=== PATIENT | female | born 1965 | race Hispanic/Latino ===

== ENCOUNTER 2018-10-18 09:58 | Inpatient (IN) | payer OTHER ==
[2018-10-18 10:04] VITALS: BMI 24.6
--- NOTE | 2018-10-18 10:26 | ED PDOC ---
HPI: Back Time Seen by Provider: 10/18/18 10:09 Chief Complaint (Provider): Neck pain History Per: Patient History/Exam Limitations: no limitations Onset/Duration Of Symptoms: Persistent Current Symptoms Are (Timing): Still Present Quality Of Discomfort: "Pain", Other Severity: Moderate Previous Symptoms: Neck Pain Additional History Per: Patient Additional Complaint(s): 52yo female with history of Baretts esophagus, chronic neck pain, cervical disk disease, comes to ER reporting worsening neck pain over the past week. She reports the pain now radiates to bilateral arms including elbows. She denies any weakness, numbness, new trauma or injury. No chest pain or shortness of breath. No additional complaints. PMD: Dr. Kaufman Past Medical History Reviewed: Historical Data, Nursing Documentation, Vital Signs Vital Signs: Last Vital Signs Temp 97 F L 10/18/18 10:02 Pulse 81 10/18/18 10:02 Resp 18 10/18/18 10:02 BP 168/93 H 10/18/18 10:02 Pulse Ox 99 10/18/18 10:02 - Medical History PMH: GERD (barett's esophagus), Chronic Pain (neck) - Surgical History Surgical History: No Surg Hx - Family History Family History: States: No Known Family Hx - Allergies Allergies/Adverse Reactions: Allergies Allergy/AdvReac Type Severity Reaction Status Date / Time codeine Allergy RASH Verified 10/18/18 10:28 nitrofurantoin Allergy RASH Verified 10/18/18 10:28 [From Macrobid] phenazopyridine Allergy RASH Verified 10/18/18 10:28 [From Pyridium] sulfamethoxazole Allergy RASH Verified 10/18/18 10:28 [From Bactrim] sulfur dioxide Allergy RASH Verified 10/18/18 10:28 trimethoprim [From Bactrim] Allergy RASH Verified 10/18/18 10:28 Review of Systems ROS Statement: Except As Marked, All Systems Reviewed And Found Negative Cardiovascular: Negative for: Chest Pain Respiratory: Negative for: Shortness of Breath Musculoskeletal: Positive for: Neck Pain, Arm Pain Neurological: Negative for: Weakness, Numbness Physical Exam - Reviewed Nursing Documentation Reviewed: Yes Vital Signs Reviewed: Yes - Physical Exam Appears: Positive for: Non-toxic, Uncomfortable Head Exam: Positive for: ATRAUMATIC, NORMAL INSPECTION, NORMOCEPHALIC Skin: Positive for: Normal Color Eye Exam: Positive for: Normal appearance, EOMI, PERRL Neck: Positive for: Supple. Negative for: Normal (+ bilateral paracervical tenderness. no midline tenderness) Cardiovascular/Chest: Positive for: Regular Rate, Rhythm. Negative for: Tachycardia Respiratory: Positive for: Normal Breath Sounds. Negative for: Respiratory Distress Gastrointestinal/Abdominal: Positive for: Normal Exam, Soft Back: Positive for: Normal Inspection Extremity: Positive for: Normal ROM (FROM bilateral upper extremities), Capillary Refill (< 2 seconds). Negative for: Tenderness, Deformity, Swelling Neurological/Psych: Positive for: Awake, Alert, Oriented (x 3). Negative for: Motor/Sensory Deficits - ECG O2 Sat by Pulse Oximetry: 99 (RA) Pulse Ox Interpretation: Normal Medical Decision Making Medical Decision Making: Chronic neck pain exacerbation [address] Kulkarni, patient to be admitted under his service due to intractable neck pain CXR ordered, basic labs ordered Scribe Attestation: Documented by Zoila Becerra acting as a scribe for Edwardo Chacko MD Provider Scribe Attestation: All medical record entries made by the Scribe were at my direction and personally dictated by me. I have reviewed the chart and agree that the record accurately reflects my personal performance of the history, physical exam, medical decision making, and the department course for this patient. I have also personally directed, reviewed, and agree with the discharge instructions and disposition. Disposition - Clinical Impression Clinical Impression: Neck pain, Cervical disc disease - Patient ED Disposition Is Patient to be Admitted: Yes - Disposition Disposition Time: 10:30 Condition: FAIR - Pt Status Changed To: Hospital Disposition Of: Inpatient - Admit Certification Admit to Inpatient:: After my assessment, the patient will require hospitalization for at least two midnights. This is because of the severity of symptoms shown, intensity of services needed, and/or the medical risk in this patient being treated as an outpatient. - POA Present On Arrival: None
[2018-10-18 11:20] LABS: PROTHROMBIN TIME 11.5 Seconds (9.8-13.1)
[2018-10-18 11:29] LABS: BASO % 0.7 % (0.0-2.0); EOS % 0.5 % (0.0-4.0); LYMPH # 0.9 K/uL (1.0-4.3); MEAN CELL VOLUME 91.5 fl (81.0-99.0); MEAN CORPUSCULAR HEMOGLOBIN 30.3 pg (27.0-31.0); MEAN CORPUSCULAR HGB CONC 33.1 g/dL (33.0-37.0); MEAN PLATELET VOLUME 9.9 fl (7.2-11.7); MONO # 0.3 K/uL (0.0-0.8); MONO % 6.7 % (0.0-10.0); NEUT % 71.1 % (50.0-75.0); NRBC % 0.1 % (0.0-0.0); RBC 4.62 Mil/uL (3.80-5.20); RED CELL DISTRIBUTION WIDTH 13.4 % (11.5-14.5); WHITE BLOOD COUNT 4.3 K/uL (4.8-10.8)
[2018-10-18 11:37] LABS: ALB/GLOB RATIO 1.5 (1.0-2.1); ALBUMIN 4.7 g/dL (3.5-5.0); ALT/SGPT 28 U/L (9-52); AST/SGOT 30 U/L (14-36); BLOOD UREA NITROGEN 17 mg/dl (7-17); CALCIUM 9.8 mg/dL (8.4-10.2); GFR NON-AFRICAN AMERICAN > 60
--- NOTE | 2018-10-18 12:23 | RAD ---
Date of service: 10/18/2018 HISTORY: Preoperative examination COMPARISON: No prior. TECHNIQUE: Chest PA and lateral FINDINGS: LINES AND TUBES: None. LUNG AND PLEURA: The lungs are well inflated and clear. No pleural effusion or pneumothorax. HEART AND MEDIASTINUM: The heart is not enlarged. No aortic atherosclerotic calcifications present. The hilar and mediastinal contours are within normal limits. SKELETAL STRUCTURES: The bony structures are within normal limits for the patient's age. VISUALIZED UPPER ABDOMEN: Normal. OTHER FINDINGS: None. IMPRESSION: No active pulmonary disease.
--- NOTE | 2018-10-18 15:33 | CARD ---
APPROVED REPORT Date of service: 10/18/2018 EKG Measurement Heart [id number] <Conclusion> Normal sinus rhythm Normal Electrocardiogram
--- NOTE | 2018-10-19 01:06 | CP.PCM.HP ---
History of Present Illness - History of Present Illness History of Present Illness: This is a 52 y/o female with hx of chronic posterior nec pain and radiculopathy presenting as pins and needles sensation and numbness of both hands. She was given gabapentin and seem to have given partial relief. However over the past two weeks her symptoms have worsen with associated decreased motor strenght of both upper extremities hence sought ER eval. Conservative measures have been tried but to no avail. Her sx increased in intensity hence sought ER eval. Medical Hx barrets esophagus On gaviscon only could not tolerate PPI's Present on Admission - Present on Admission Any Indicators Present on Admission: No History of DVT/PE: No History of Uncontrolled Diabetes: No Urinary Catheter: No Decubitus Ulcer Present: No Past Patient History - Past Medical History & Family History Past Medical History?: Yes - Past Social History Smoking Status: Never Smoked - CARDIAC Hx Cardiac Disorders: No - PULMONARY Hx Respiratory Disorders: No - NEUROLOGICAL Hx Neurological Disorder: Yes Hx Migraine: Yes - HEENT Hx HEENT Problems: No - RENAL Hx Chronic Kidney Disease: No - ENDOCRINE/METABOLIC Hx Endocrine Disorders: No - HEMATOLOGICAL/ONCOLOGICAL Hx Blood Disorders: No - INTEGUMENTARY Hx Dermatological Problems: No - MUSCULOSKELETAL/RHEUMATOLOGICAL Hx Musculoskeletal Disorders: Yes Hx Falls: No Other/Comment: intractable neck pain - GASTROINTESTINAL Hx Gastrointestinal Disorders: No - GENITOURINARY/GYNECOLOGICAL Hx Genitourinary Disorders: No - PSYCHIATRIC Hx Psychophysiologic Disorder: No Hx Substance Use: No - SURGICAL HISTORY Hx Surgeries: Yes Other/Comment: lower back surgery L4,L5,S1 infusion with 2 rods - ANESTHESIA Hx Anesthesia: Yes (as per pt, migraines) Hx Anesthesia Reactions: Yes Hx Malignant Hyperthermia: No Meds Allergies/Adverse Reactions: Allergies Allergy/AdvReac Type Severity Reaction Status Date / Time codeine Allergy RASH Verified 10/18/18 10:28 nitrofurantoin Allergy RASH Verified 10/18/18 10:28 [From Macrobid] phenazopyridine Allergy RASH Verified 10/18/18 10:28 [From Pyridium] sulfamethoxazole Allergy RASH Verified 10/18/18 10:28 [From Bactrim] sulfur dioxide Allergy RASH Verified 10/18/18 10:28 trimethoprim [From Bactrim] Allergy RASH Verified 10/18/18 10:28 dexlansoprazole AdvReac NAUSEA Verified 10/18/18 10:48 [From Dexilant] famotidine AdvReac NAUSEA Verified 10/18/18 10:48 Physical Exam - Head Exam Head Exam: NORMAL INSPECTION - Eye Exam Eye Exam: Normal appearance - Respiratory Exam Respiratory Exam: Clear to Auscultation Bilateral - Cardiovascular Exam Cardiovascular Exam: REGULAR RHYTHM - GI/Abdominal Exam GI & Abdominal Exam: Normal Bowel Sounds - Neurological Exam Neurological exam: CN II-XII Intact - Psychiatric Exam Psychiatric exam: Normal Mood Results - Vital Signs Recent Vital Signs: Last Vital Signs Temp 97.6 F 10/19/18 00:00 Pulse 72 10/19/18 00:00 Resp 18 10/19/18 00:00 BP 115/65 10/19/18 00:00 Pulse Ox 98 10/19/18 00:00 - Labs Result Diagrams: 10/18/18 10:02 10/18/18 10:02 Labs: Laboratory Results - last 24 hr 10/18/18 10/18/18 10/18/18 10:02 10:02 10:02 WBC 4.3 L RBC 4.62 Hgb 14.0 Hct 42.3 MCV 91.5 MCH 30.3 MCHC 33.1 RDW 13.4 Plt Count 176 MPV 9.9 Neut % (Auto) 71.1 Lymph % (Auto) 21.0 [place] % (Auto) 6.7 Eos % (Auto) 0.5 Baso % (Auto) 0.7 Neut # (Auto) 3.0 Lymph # (Auto) 0.9 L Sharp # (Auto) 0.3 Eos # (Auto) 0.0 Baso # (Auto) 0.0 PT 11.5 INR 1.0 Sodium 141 Potassium 4.2 Chloride 107 Carbon Dioxide 25 Anion Gap 13 BUN 17 Creatinine 0.9 Est GFR ( Amer) > 60 Est GFR (Non-Af Amer) > 60 Random Glucose 98 Calcium 9.8 Total Bilirubin 0.5 AST 30 ALT 28 Alkaline Phosphatase 88 Total Protein 7.8 Albumin 4.7 Globulin 3.1 Albumin/Globulin Ratio 1.5 Assessment & Plan (1) Herniated disc, cervical Status: Acute (2) Cervical disc disease Status: Acute (3) Gannon's esophageal ulceration Status: Acute (4) Barretts esophagus Status: Acute - Assessment and Plan (Free Text) Plan: Admit patient Dr Kaufman aware pain meds labs reviewed medically stable for surgery
[2018-10-19] MEDS ORDERED: Dextrose 5%/Lactated Ringer's 1,000 ML IV SCH (06:00)
[2018-10-19] MEDS ORDERED: Thrombin Topical 5,000 Int Units Spray Kit ONE (07:05)
[2018-10-19] MEDS ORDERED: Propofol 10 mg/ml Inj (20 ML) ONE (07:15)
[2018-10-19] MEDS ORDERED: Succinylcholine Chloride 20 mg/ml Syr (5 ml) IV ONE (07:15)
[2018-10-19] MEDS ORDERED: Rocuronium 10 mg/ml (5 ml) ONE (07:15)
[2018-10-19] MEDS ORDERED: Lidocaine 4% (Laryng-O-Jet) Kit MM ONE ×2 (07:15→07:16)
--- NOTE | 2018-10-19 07:15 | CP.PCM.CON ---
History of Present Illness - History of Present Illness History of Present Illness: Neurosurgery consult: Dr. Kaufman Patient is a 52 y/o female who presents with severe neck pain. She has had pain for many years which had progressively worsened over the last 2 weeks. She has tried and failed conservative management with physical therapy and oral medications. The pain has severely limited her daily activities such as lifting objects and sudden movements prompting her for emergent evaluation. The pain radiates from the neck to BUE, along with numbness and tingling. The pain is sharp and intermittent. She denies CP/SOB/N/V/D/fever/melena/dysuria. Review of Systems - Review of Systems All systems: reviewed and no additional remarkable complaints except Review of Systems: as per HPI Past Patient History - Past Medical History & Family History Past Medical History?: Yes Past Family History: Reviewed and not pertinent - Past Social History Smoking Status: Never Smoked - CARDIAC Hx Cardiac Disorders: No - PULMONARY Hx Respiratory Disorders: No - NEUROLOGICAL Hx Neurological Disorder: Yes Hx Migraine: Yes - HEENT Hx HEENT Problems: No - RENAL Hx Chronic Kidney Disease: No - ENDOCRINE/METABOLIC Hx Endocrine Disorders: No - HEMATOLOGICAL/ONCOLOGICAL Hx Blood Disorders: No - INTEGUMENTARY Hx Dermatological Problems: No - MUSCULOSKELETAL/RHEUMATOLOGICAL Hx Musculoskeletal Disorders: Yes Hx Falls: No Other/Comment: intractable neck pain - GASTROINTESTINAL Hx Gastrointestinal Disorders: No - GENITOURINARY/GYNECOLOGICAL Hx Genitourinary Disorders: No - PSYCHIATRIC Hx Psychophysiologic Disorder: No Hx Substance Use: No - SURGICAL HISTORY Hx Surgeries: Yes Other/Comment: lower back surgery L4,L5,S1 infusion with 2 rods - ANESTHESIA Hx Anesthesia: Yes (as per pt, migraines) Hx Anesthesia Reactions: Yes Hx Malignant Hyperthermia: No Meds Allergies/Adverse Reactions: Allergies Allergy/AdvReac Type Severity Reaction Status Date / Time codeine Allergy RASH Verified 10/18/18 10:28 nitrofurantoin Allergy RASH Verified 10/18/18 10:28 [From Macrobid] phenazopyridine Allergy RASH Verified 10/18/18 10:28 [From Pyridium] sulfamethoxazole Allergy RASH Verified 10/18/18 10:28 [From Bactrim] sulfur dioxide Allergy RASH Verified 10/18/18 10:28 trimethoprim [From Bactrim] Allergy RASH Verified 10/18/18 10:28 dexlansoprazole AdvReac NAUSEA Verified 10/18/18 10:48 [From Dexilant] famotidine AdvReac NAUSEA Verified 10/18/18 10:48 - Medications Medications: Current Medications Gabapentin (Neurontin) 200 mg PO [facility] Last Admin: 10/18/18 21:33 Dose: 200 mg Dextrose/Lactated Ringer's (Dextrose 5%/Lactated Ringer's) 1,000 mls @ 80 mls/hr IV .[id number] [facility] Stop: 10/19/18 12:20 Last Admin: 10/19/18 05:46 Dose: 80 mls/hr Physical Exam - Constitutional Appears: Well, No Acute Distress - Head Exam Head Exam: ATRAUMATIC, NORMOCEPHALIC - Eye Exam Eye Exam: EOMI, Normal appearance - ENT Exam ENT Exam: Mucous Membranes Moist - Neck Exam Additional comments: Midline tenderness b/l paraspinal tenderness motor and sensation intact AXN/MN/UN/RN neg clonus - Respiratory Exam Respiratory Exam: NORMAL BREATHING PATTERN - Neurological Exam Neurological exam: Alert, CN II-XII Intact, Oriented x3 - Psychiatric Exam Psychiatric exam: Normal Affect, Normal Mood - Skin Skin Exam: Normal Color, Warm Results - Vital Signs Recent Vital Signs: Last Vital Signs Temp 97.6 F 10/19/18 00:00 Pulse 72 10/19/18 00:00 Resp 18 10/19/18 00:00 BP 115/65 10/19/18 00:00 Pulse Ox 98 10/19/18 00:00 - Labs Result Diagrams: 10/18/18 10:02 10/18/18 10:02 Labs: Laboratory Results - last 24 hr 10/18/18 10/18/18 10/18/18 10:02 10:02 10:02 WBC 4.3 L RBC 4.62 Hgb 14.0 Hct 42.3 MCV 91.5 MCH 30.3 MCHC 33.1 RDW 13.4 Plt Count 176 MPV 9.9 Neut % (Auto) 71.1 Lymph % (Auto) 21.0 [place] % (Auto) 6.7 Eos % (Auto) 0.5 Baso % (Auto) 0.7 Neut # (Auto) 3.0 Lymph # (Auto) 0.9 L [place] # (Auto) 0.3 Eos # (Auto) 0.0 Baso # (Auto) 0.0 PT 11.5 INR 1.0 Sodium 141 Potassium 4.2 Chloride 107 Carbon Dioxide 25 Anion Gap 13 BUN 17 Creatinine 0.9 Est GFR ( Amer) > 60 Est GFR (Non-Af Amer) > 60 Random Glucose 98 Calcium 9.8 Total Bilirubin 0.5 AST 30 ALT 28 Alkaline Phosphatase 88 Total Protein 7.8 Albumin 4.7 Globulin 3.1 Albumin/Globulin Ratio 1.5 Assessment & Plan (1) Cervical spondylosis Assessment and Plan: -Preoperatively, Dr. Kaufman reviewed the patient's cervical MRI and discussed with the patient to perform C3-4 and C4-5 anterior cervical discectomy and fusion,possible other levels -Risks/benefits/alternatives to procedure were explained in detail with patient. The patient expresses understanding and agrees to proceed with above procedure. -NPO -D/w Dr. Kaufman who agrees with above Status: Acute - Date & Time Date: 10/19/18 Time: 07:14
[2018-10-19] MEDS ORDERED: Lactated Ringer's 1,000 ML IV ONE ×3 (07:40→09:03)
[2018-10-19] MEDS ORDERED: Midazolam 2 MG/2 ML VIAL ONE (07:41)
[2018-10-19] MEDS ORDERED: Absorbable Gelatin Sponge Size 100 ONE (08:05)
[2018-10-19] MEDS ORDERED: Dexamethasone 4 mg/1 ml ONE (08:06)
[2018-10-19] MEDS ORDERED: Lidocaine 2% MPF (5 ml) Inj ONE (08:39)
[2018-10-19] MEDS ORDERED: Neostigmine 1:1000 (1 mg/ml) Inj ONE (08:40)
[2018-10-19] MEDS ORDERED: HEMOSTATIC MATRIX 10 ML DIS.NEEDLE TOP ONE (08:45)
[2018-10-19] MEDS: HYDROmorphone 0.5 mg/0.5 ml ISec IVP PRN ×4 (09:19→09:38)
--- NOTE | 2018-10-19 11:35 | PCM.SURG1 ---
Surgeon's Initial Post Op Note - Surgeon's Notes Surgeon: David Kaufman MD Edger Machine Operator: Zafar Calderon PA-C Type of Anesthesia: General Endo Anesthesia Administered By: Murali Oliva MD Pre-Operative Diagnosis: Cervical Spondylosis Operative Findings: See complete operative report Post-Operative Diagnosis: C3-4 and C4-5 cervical spondylosis Operation Performed: C3-4 and C4-5 anterior cervical discectomy and fusion Specimen/Specimens Removed: none Estimated Blood Loss: EBL {In ML}: 50 Blood Products Given: N/A Drains Used: Danielito Aguilar (R neck) Post-Op Condition: Good Date of Surgery/Procedure: 10/19/18 Time of Surgery/Procedure: 07:40
--- NOTE | 2018-10-19 13:48 | RAD ---
Date of service: 10/19/2018 PROCEDURE: Fluoroscopic assistance in excess of 1 hour. HISTORY: ACDF COMPARISON: None TECHNIQUE: Total fluoroscopic time (continuous mode) utilized during the procedure 12.3 seconds. . FINDINGS: Total exam DLP: 0.69 (mGy). IMPRESSION: Submitted images from the current procedure: 3.0.
[2018-10-19] MEDS: Dexamethasone 4 mg/1 ml IVP SCH (16:16)
[2018-10-19] MEDS ORDERED: Dexamethasone 4 MG in Sodium Chloride 0.9% 50 ML IVPB SCH (17:00)
[2018-10-19] MEDS: ceFAZolin 1 GM in Sodium Chloride 0.9% 100 ML IVPB SCH (18:40)
[2018-10-19] MEDS ORDERED: Docusate-Senna 50 mg-8.6 mg Tab PO SCH (22:00)
--- NOTE | 2018-10-19 23:25 | CP.PCM.PN ---
Subjective - Date & Time of Evaluation Date of Evaluation: 10/19/18 Time of Evaluation: 10:55 - Subjective Subjective: Pt seen and assessed in recovery room s/p cervical discectomy C3-C4, C4-C5. Currently drowsy but arousable, will be transferred to telemetry for post-op monitoring. Subjective Review of Systems: reviewed and no additional remarkable complaints except drowsiness s/p cervical procedure. Objective Vital Signs Stable Appears: Non-toxic, No Acute Distress. Head Exam: NORMAL INSPECTION, normocephalic. Eye Exam: Reddened right eye, PERRLA, EOMI. Respiratory Exam: Respirations easy, non-labored, breath sounds clear bilaterally. Cardiovascular Exam: +S1, +S2; RRR. GI & Abdominal Exam: Soft, non-tender, non-distended. Neurological Exam: Drowsy but arousable, responds appropriately. Psychiatric exam: Normal Affect, Normal Mood Skin Exam: Normal Color, Warm, Dry. Assessment/Impression/Plan: 1.) Neck Pain/Cervical disc disease -C3-C4, C4-C5 discectomy done by Dr. Kaufman (neurosurgery). -Right neck TAVO drain noted with serosanguineous drainage- monitor output. -Telemetry monitoring s/p surgery. -Pain/comfort measures. -Continue current tx. Objective - Vital Signs/Intake and Output Vital Signs (last 24 hours): Temp Pulse Resp BP Pulse Ox 97.4 F L 68 17 130/84 99 10/19/18 19:40 10/19/18 19:40 10/19/18 19:40 10/19/18 19:40 10/19/18 19:40 Intake and Output: 10/19/18 10/20/18 18:59 06:59 Intake Total 970 Output Total 5 Balance 965 - Medications Medications: Current Medications Acetaminophen (Tylenol 325mg Tab) 650 mg PO Q4 PRN PRN Reason: Fever 101 degrees fahrenheit Cyclobenzaprine HCl (Flexeril) 10 mg PO Q8 PRN PRN Reason: Muscle spasm Dexamethasone (Decadron Inj) 4 mg IVP Q8 [facility] Last Admin: 10/19/18 16:16 Dose: 4 mg Gabapentin (Neurontin) 200 mg PO HS [facility] Last Admin: 10/18/18 21:33 Dose: 200 mg Hydromorphone HCl (Dilaudid) 1 mg IVP Q4 PRN PRN Reason: Pain, severe (8-10) Last Admin: 10/19/18 16:16 Dose: 1 mg Cefazolin Sodium 1 gm/ Sodium (Chloride) 100 mls @ 100 mls/hr IVPB Q8 [facility]; Protocol Stop: 10/21/18 17:01 Last Admin: 10/19/18 18:40 Dose: 100 mls/hr Lactated Ringer's (Lactated Ringer's) 1,000 mls @ 100 mls/hr IV .Q10H [facility] Ondansetron HCl (Zofran Inj) 4 mg IVP ONCE PRN PRN Reason: Nausea/Vomiting Last Admin: 10/19/18 11:30 Dose: 4 mg Ondansetron HCl (Zofran Inj) 4 mg IVP Q6 PRN PRN Reason: Nausea/Vomiting Last Admin: 10/19/18 16:19 Dose: 4 mg Senna/Docusate Sodium (Senokot S 50 Mg-8.6 Mg) 2 tab PO HS [facility] Tramadol HCl (Ultram) 50 mg PO Q4 PRN PRN Reason: Pain, Mild (1-3) Last Admin: 10/19/18 21:27 Dose: 50 mg Tramadol HCl (Ultram) 100 mg PO Q4 PRN PRN Reason: Pain, moderate (4-7) - Labs Labs: 10/18/18 10:02 10/18/18 10:02 PT 11.5 Seconds (9.8-13.1) 10/18/18 10:02 INR 1.0 10/18/18 10:02 Assessment and Plan (1) Cervical disc disease Status: Acute (2) Neck pain Status: Acute
[2018-10-20] MEDS: Dexamethasone 4 mg/1 ml IVP SCH ×2 (00:06→09:05)
[2018-10-20] MEDS: ceFAZolin 1 GM in Sodium Chloride 0.9% 100 ML IVPB SCH ×2 (00:07→09:08)
[2018-10-20 00:13] VITALS: O2SAT 100
[2018-10-20] MEDS: Lactated Ringer's 1,000 ML IV SCH ×2 (00:14→09:07)
--- NOTE | 2018-10-20 00:37 | OP ---
PROCEDURE DATE: 10/19/2018 PREOPERATIVE DIAGNOSIS: Herniated cervical disk at C3-4, C4-5. POSTOPERATIVE DIAGNOSIS: Herniated cervical disk at C3-4, C4-5. PROCEDURE: Partial vertebrectomy of C3, C4 and C5; discectomy of C3-4, C4-5; interbody fusion of C3-4, C4-5 using PEEK and bone; plating and instrumentation from C3-C5 using spinal element plate. Fluoroscopy has been used, microscope has been used. SURGEON: David Kaufman MD. EVENT COORDINATOR MARKETING AND SALES: Zafar Calderon. Zafar Calderon is the physician records assistant who helped me perform the surgery and stayed throughout the case from the beginning to the end. DESCRIPTION OF PROCEDURE: The patient was brought to the operating room, anesthetized with general endotracheal anesthesia, placed in a supine position. Head was placed on a donut. Care was taken to protect all the pressure points. Right side of the neck was thoroughly prepped and draped in the same sterile manner after marking the skin incisions for cervical vertebrectomy. After prepping and draping the area, skin has been incised. Bleeding skins have been controlled with bipolar commercial real estate sales manager. Using a Bovie commercial real estate sales manager, the platysma has been cut. Dissection has been carried out between trachea and esophagus medially and sternomastoid carried out laterally. Prevertebral fascia has been cauterized and cut. Identification of levels has been done with the help of fluoroscopy. Longus colli has been detached from attachment of vertebral bodies of C3, C4, and C5. Dyonics retractor has been applied. Rest of the operation carried out with microscopic illumination. PARTIAL VERTEBRECTOMY OF C3, C4 and C5 AND DISCECTOMY OF C3-4, C4-5: By using a high-speed drill, the vertebral bodies of C3-4 have been drilled. Drilling was continued posteriorly. Partial vertebrectomy including removal of half of the vertebral body, cartilages, and plates has been done. Herniated disk has been removed. Posterior longitudinal ligament has been opened. Dura has been decompressed from side to side. By using a high-speed drill, the vertebral bodies of C4-5 have been drilled. Partial vertebrectomy including removal of half of the vertebral body, cartilages and plates has been done. Diskectomy has been performed. Herniated disk material has been removed. Posterior longitudinal ligament has been opened. Dura has been decompressed from side to side. INTERBODY FUSION OF C3-4, C4-5 USING A PEEK AND BONE: Two pieces of PEEK implant have been brought in. They have been filled with demineralized bone. They were gently tapped into space creating a partial vertebrectomy of C3-4 and C4-5. Position had been confirmed to be good. PLATING AND INSTRUMENTATION C3-C5 USING SPINAL ELEMENTS PLATE: An spinal elements plate has been placed at vertebral bodies of C3, C4, C5. By using 12 mm screw, it has been secured under fluoroscopic guided control. After that, hemostasis was best achieved. Danielito drain was placed in the wound and brought out through a separate stab neck skin incision. Platysma closed with 3-0 Vicryl. Skin has been closed with intradermal 3 Vicryl stitches. The patient tolerated the procedure. After the procedure, mobilized to the recovery room in stabilized condition. David Kaufman MD
[2018-10-20 07:11] LABS: HEMOGLOBIN 13.8 g/dL (12.0-16.0); MEAN CELL VOLUME 91.7 fl (81.0-99.0); MEAN CORPUSCULAR HEMOGLOBIN 30.8 pg (27.0-31.0); MEAN CORPUSCULAR HGB CONC 33.6 g/dL (33.0-37.0); RBC 4.49 Mil/uL (3.80-5.20); RED CELL DISTRIBUTION WIDTH 13.2 % (11.5-14.5)
[2018-10-20 07:18] LABS: BLOOD UREA NITROGEN 14 mg/dl (7-17); CALCIUM 10.1 mg/dL (8.4-10.2); GFR NON-AFRICAN AMERICAN > 60
[2018-10-20 08:01] VITALS: RESP 20
[2018-10-20 11:58] VITALS: BP 134/84; PULSE 77; TEMP 98
--- NOTE | 2018-10-20 14:21 | CP.PCM.PN ---
Subjective - Date & Time of Evaluation Date of Evaluation: 10/20/18 Time of Evaluation: 14:17 - Subjective Subjective: f/u Dr. Kaufman Patient doing well. Says the pain in her elbow is gone and the tingling in her hands is occasional now and minimal. +vomiting yesterday, but denies n/v today. Denies CP/SOB/dizziness. Tolerating diet well, no issues swallowing. Objective - Vital Signs/Intake and Output Vital Signs (last 24 hours): Temp Pulse Resp BP Pulse Ox 98.0 F 77 20 134/84 100 10/20/18 11:57 10/20/18 11:57 10/20/18 11:57 10/20/18 11:57 10/20/18 11:57 - Medications Medications: Current Medications Acetaminophen (Tylenol 325mg Tab) 650 mg PO Q4 PRN PRN Reason: Fever 101 degrees fahrenheit Cyclobenzaprine HCl (Flexeril) 10 mg PO Q8 PRN PRN Reason: Muscle spasm Dexamethasone (Decadron Inj) 4 mg IVP Q8 [facility] Last Admin: 10/20/18 09:05 Dose: 4 mg Gabapentin (Neurontin) 200 mg PO HS [facility] Last Admin: 10/19/18 23:00 Dose: 200 mg Hydromorphone HCl (Dilaudid) 1 mg IVP Q4 PRN PRN Reason: Pain, severe (8-10) Last Admin: 10/19/18 16:16 Dose: 1 mg Cefazolin Sodium 1 gm/ Sodium (Chloride) 100 mls @ 100 mls/hr IVPB Q8 [facility]; Protocol Stop: 10/21/18 17:01 Last Admin: 10/20/18 09:08 Dose: 100 mls/hr Lactated Ringer's (Lactated Ringer's) 1,000 mls @ 100 mls/hr IV .Q10H [facility] Last Admin: 10/20/18 09:07 Dose: 100 mls/hr Ondansetron HCl (Zofran Inj) 4 mg IVP ONCE PRN PRN Reason: Nausea/Vomiting Last Admin: 10/19/18 11:30 Dose: 4 mg Ondansetron HCl (Zofran Inj) 4 mg IVP Q6 PRN PRN Reason: Nausea/Vomiting Last Admin: 10/20/18 00:19 Dose: 4 mg Senna/Docusate Sodium (Senokot S 50 Mg-8.6 Mg) 2 tab PO HS [facility] Last Admin: 10/19/18 23:00 Dose: 2 tab Tramadol HCl (Ultram) 50 mg PO Q4 PRN PRN Reason: Pain, Mild (1-3) Last Admin: 10/19/18 21:27 Dose: 50 mg Tramadol HCl (Ultram) 100 mg PO Q4 PRN PRN Reason: Pain, moderate (4-7) - Labs Labs: 10/20/18 06:10 10/20/18 06:10 PT 11.5 Seconds (9.8-13.1) 10/18/18 10:02 INR 1.0 10/18/18 10:02 - Neck Exam Additional comments: 2cc overnight in TAVO, <1 now, pulled. +ROM shoulder abd/fflex/elbow flex/ext/wrist flex/ext, finger abd/add sensation intact C5-T2 incision intact, dry Assessment and Plan (1) Cervical spondylosis Assessment & Plan: POD#1 s/p ACDF C3-C5 d/c home soft collar f/u 2 weeks, call for appt dressing change daily until dry d/w Dr. Kaufman, agrees with above Status: Acute
--- NOTE | 2018-10-21 14:54 | CP.PCM.DIS ---
Provider - Provider Date of Admission: 10/18/18 10:10 Attending physician: Davi Kulkarni MD Consults: 10/18/18 23:33 Neuro Surgery Consult Routine Comment: schd C3-C4 cerv disectomy w/fusion 10/19/18 Consulting Provider: David Kaufman Consulting Physician: David Kaufman Reason for Consult: for OR 10/19/18 10/19/18 11:22 Case Management Referral Routine Comment: Physician Instructions: Reason For Exam: Reason for Referral: Discharge Planning Time Spent in preparation of Discharge (in minutes): 30 Diagnosis - Discharge Diagnosis (1) Cervical spondylosis Status: Acute Hospital Course - Lab Results Lab Results: Most Recent Lab Values WBC 9.0 K/uL (4.8-10.8) D 10/20/18 06:10 RBC 4.49 Mil/uL (3.80-5.20) 10/20/18 06:10 Hgb 13.8 g/dL (12.0-16.0) 10/20/18 06:10 Hct 41.1 % (34.0-47.0) 10/20/18 06:10 MCV 91.7 fl (81.0-99.0) 10/20/18 06:10 MCH 30.8 pg (27.0-31.0) 10/20/18 06:10 MCHC 33.6 g/dL (33.0-37.0) 10/20/18 06:10 RDW 13.2 % (11.5-14.5) 10/20/18 06:10 Plt Count 176 K/uL (130-400) 10/20/18 06:10 MPV 9.9 fl (7.2-11.7) 10/18/18 10:02 Neut % (Auto) 71.1 % (50.0-75.0) 10/18/18 10:02 Lymph % (Auto) 21.0 % (20.0-40.0) 10/18/18 10:02 [place] % (Auto) 6.7 % (0.0-10.0) 10/18/18 10:02 Eos % (Auto) 0.5 % (0.0-4.0) 10/18/18 10:02 Baso % (Auto) 0.7 % (0.0-2.0) 10/18/18 10:02 Neut # (Auto) 3.0 K/uL (1.8-7.0) 10/18/18 10:02 Lymph # (Auto) 0.9 K/uL (1.0-4.3) L 10/18/18 10:02 [place] # (Auto) 0.3 K/uL (0.0-0.8) 10/18/18 10:02 Eos # (Auto) 0.0 K/uL (0.0-0.7) 10/18/18 10:02 Baso # (Auto) 0.0 K/uL (0.0-0.2) 10/18/18 10:02 PT 11.5 Seconds (9.8-13.1) 10/18/18 10:02 INR 1.0 10/18/18 10:02 Sodium 141 mmol/l (132-148) 10/20/18 06:10 Potassium 4.7 MMOL/L (3.6-5.0) 10/20/18 06:10 Chloride 104 mmol/L (98-107) 10/20/18 06:10 Carbon Dioxide 28 mmol/L (22-30) 10/20/18 06:10 Anion Gap 14 (10-20) 10/20/18 06:10 BUN 14 mg/dl (7-17) 10/20/18 06:10 Creatinine 0.8 mg/dl (0.7-1.2) 10/20/18 06:10 Est GFR ( Amer) > 60 10/20/18 06:10 Est GFR (Non-Af Amer) > 60 10/20/18 06:10 Random Glucose 147 mg/dL (65-105) H 10/20/18 06:10 Calcium 10.1 mg/dL (8.4-10.2) 10/20/18 06:10 Total Bilirubin 0.5 mg/dl (0.2-1.3) 10/18/18 10:02 AST 30 U/L (14-36) 10/18/18 10:02 ALT 28 U/L (9-52) 10/18/18 10:02 Alkaline Phosphatase 88 U/L (38-126) 10/18/18 10:02 Total Protein 7.8 G/DL (6.3-8.2) 10/18/18 10:02 Albumin 4.7 g/dL (3.5-5.0) 10/18/18 10:02 Globulin 3.1 gm/dL (2.2-3.9) 10/18/18 10:02 Albumin/Globulin Ratio 1.5 (1.0-2.1) 10/18/18 10:02 - Hospital Course Hospital Course: 52 y/o female who presented with severe neck pain. She has had pain for many years which had progressively worsened over the last 2 weeks. She has tried and failed conservative management with physical therapy and oral medications. The pain has severely limited her daily activities. Patient was admitted, neurosurgery consulted. Patient is now s/p ACDF C3-C5. no complications noted. Patient discharged home in stable condition. Discharge Exam - Head Exam Head Exam: ATRAUMATIC, NORMOCEPHALIC - Eye Exam Eye Exam: Normal appearance - Respiratory Exam Respiratory Exam: NORMAL BREATHING PATTERN - Cardiovascular Exam Cardiovascular Exam: +S1, +S2 - Neurological Exam Neurological exam: Alert, Oriented x3 - Psychiatric Exam Psychiatric exam: Normal Affect, Normal Mood - Skin Skin Exam: Normal Color, Warm Discharge Plan - Discharge Medications Prescriptions: Dexamethasone [Decadron] 4 mg PO Q12 #10 tab Gabapentin [Neurontin] 200 mg PO HS #30 cap traMADol [Ultram] 50 mg PO Q4 PRN #20 tab PRN Reason: Pain, Mild (1-3) - Follow Up Plan Condition: STABLE Disposition: HOME/ ROUTINE Additional Instructions: No activity restrictions Referrals: Davi Kulkarni MD [Staff Provider] -
== END 2018-10-20 16:15 | disposition home or self-care (01) | DRG 473 ==
LOC: H.ER 09:58 → H.ERHOLD 10:10 → H.MEDSURG1 12:50 → H.TEL 10-19 11:52
PROVIDERS: ADMIT Family Medicine; ATTEND Family Medicine
PROC: 0RG20AJ Fusion of 2 or more Cervical Vertebral Joints with Interbody Fusion Device, Posterior Approach, Anterior Column, Open Approach (ICD-10-PCS; 2018-10-19)
PROC: 0RB30ZZ Excision of Cervical Vertebral Disc, Open Approach (ICD-10-PCS; principal; 2018-10-19 07:45)
PROC: F07Z9FZ Gait Training/Functional Ambulation Treatment using Assistive, Adaptive, Supportive or Protective Equipment (ICD-10-PCS; 2018-10-20)
DX: M50.21 Other cervical disc displacement, high cervical region (principal); M47.812 Spondylosis without myelopathy or radiculopathy, cervical region; G89.29 Other chronic pain; K21.9 Gastro-esophageal reflux disease without esophagitis; K22.70 Barrett's esophagus without dysplasia; Z88.6 Allergy status to analgesic agent; Z88.2 Allergy status to sulfonamides